=== PATIENT | female | born 1995 | race African-American/Black ===

== ENCOUNTER 2020-12-20 12:26 | Emergency (ER) | payer MEDICAID ==
[~2020-12-20] VITALS: Ht 172.7 cm; Wt 89.0 kg
[~2020-12-20 12:26] MED LIST: FERR-43 PO
[2020-12-20] MEDS ORDERED: ACETAMINOPHEN 325MG TABLET PO PRN (16:30)
[2020-12-20 16:44] LABS: HEMOGLOBIN. 10.7 g/dL (12.0-16.0); MEAN CORPUSCULAR HEMOGLOBIN 22.6 pg (28.0-32.0); MEAN PLATELET VOLUME 7.9 fl (7.4-10.4); PLATELET 384 x1000/uL (130-400); RED BLOOD CELL COUNT 4.73 mill/uL (4.2-5.4); RED CELL DISTRIBUTION WIDTH 19.6 % (11.6-14.6)
[2020-12-20 16:49] LABS: CHLORIDE 107 mEq/L (98-107)
[2020-12-20 16:51] LABS: CLARITY URINE CLEAR (CLEAR); COLOR URINE YELLOW (YELLOW); KETONES URINE TRACE (NEGATIVE); LEUKOCYTE ESTERASE URINE NEGATIVE (NEGATIVE); NITRITE URINE NEGATIVE (NEGATIVE); OCCULT BLOOD URINE 1+ (NEGATIVE); PH URINE 6.5 (4.5-8.0); PROTEIN URINE NEGATIVE (NEGATIVE); SPECIFIC GRAVITY URINE 1.028 (1.005-1.030)
[2020-12-20 17:12] LABS: B-HCG QUANTITATIVE 1310 mIU/mL (<3)
[2020-12-20 17:16] LABS: PLATELET ESTIMATE NORMAL
[2020-12-20 17:55] VITALS: BP 142/62
[2020-12-20] MEDS ORDERED: ACET-2708 MT (17:55)
== END 2020-12-20 18:52 | disposition home or self-care (01) ==
LOC: ER 12:26
DX: O20.9 Hemorrhage in early pregnancy, unspecified (principal); Z3A.13 13 weeks gestation of pregnancy; J45.909 Unspecified asthma, uncomplicated
CPT/HCPCS: 36415; 76801; 80053; 81003; 81025; 84702; 85025; 86850; 86900; 99284

== ENCOUNTER 2021-09-10 17:29 | Emergency (ER) | payer MEDICAID, OTHER ==
[~2021-09-10] VITALS: Ht 170.2 cm; Wt 84.0 kg
[~2021-09-10 17:29] MED LIST changes: +ACET-2708 MT
[2021-09-10 17:57] VITALS: BP 126/82
[2021-09-10 20:13] LABS: CLARITY URINE CLEAR (CLEAR); COLOR URINE YELLOW (YELLOW); KETONES URINE NEGATIVE (NEGATIVE); LEUKOCYTE ESTERASE URINE 1+ (NEGATIVE); NITRITE URINE NEGATIVE (NEGATIVE); OCCULT BLOOD URINE NEGATIVE (NEGATIVE); PH URINE 5.5 (4.5-8.0); PROTEIN URINE NEGATIVE (NEGATIVE); SPECIFIC GRAVITY URINE 1.022 (1.005-1.030)
[2021-09-10 20:23] LABS: HEMOGLOBIN. 10.1 g/dL (12.0-16.0); MEAN CORPUSCULAR HEMOGLOBIN 22.6 pg (28.0-32.0); MEAN CORPUSCULAR VOLUME 71.7 fL (81.0-99.0); MEAN PLATELET VOLUME 7.7 fl (7.4-10.4); PLATELET 406 x1000/uL (130-400); RED BLOOD CELL COUNT 4.47 mill/uL (4.2-5.4)
[2021-09-10 20:35] LABS: CHLORIDE 106 mEq/L (98-107)
[2021-09-10 21:10] LABS: PLATELET ESTIMATE INCREASED
[2021-09-10] MEDS ORDERED: IBUP-2029 MT (23:15)
== END 2021-09-10 23:34 | disposition home or self-care (01) ==
LOC: ER 17:29
DX: R10.2 Pelvic and perineal pain (principal); J45.909 Unspecified asthma, uncomplicated
CPT/HCPCS: 36415; 76856; 80053; 81003; 81025; 85025; 99284